=== PATIENT | female | born 1965 | race Caucasian/White ===

== ENCOUNTER 2017-07-14 10:49 | Emergency (ER) | payer OTHER, BC ==
[~2017-07-14] VITALS: Ht 167.6 cm; Wt 90.7 kg
[~2017-07-14 10:49] MED LIST: AMBIEN10 MG PO; BENADRYL25 MG PO; CLARITIN10 M2 PO; CYCLOBENZAPRINE10 MG PO; MOTRIN IB200 MG PO; NAPROXEN500 MG PO; NORCO 5-325 TA1 EACH PO; OXYCODONE HCL5 MG PO; SLEEP AID25 M1 PO
[2017-07-14] MEDS ORDERED: ROBAXIN-750750 MG PO (15:40)
== END 2017-07-14 16:29 | disposition home or self-care (01) ==
LOC: ED 10:49
DX: S16.1XXA Strain of muscle, fascia and tendon at neck level, initial encounter (principal); S29.012A Strain of muscle and tendon of back wall of thorax, initial encounter; F17.200 Nicotine dependence, unspecified, uncomplicated; Z90.710 Acquired absence of both cervix and uterus; V59.9XXA Occupant (driver) (passenger) of pick-up truck or van injured in unspecified traffic accident, initial encounter
CPT/HCPCS: 96372; 99283; J1885

== ENCOUNTER 2018-04-11 12:43 | Emergency (ER) | payer OTHER, BC ==
[~2018-04-11] VITALS: Ht 167.6 cm; Wt 90.7 kg
[~2018-04-11 12:43] MED LIST changes: +ROBAXIN-750750 MG PO
[2018-04-11] MEDS ORDERED: ESTRADIOL1 MG PO (12:55)
[2018-04-11] MEDS ORDERED: KETOROLAC TROME10 MG PO (14:31)
[2018-04-11] MEDS ORDERED: BACLOFEN10 MG PO (14:31)
== END 2018-04-11 14:47 | disposition home or self-care (01) ==
LOC: ED 12:43
DX: S09.90XA Unspecified injury of head, initial encounter (principal); F17.200 Nicotine dependence, unspecified, uncomplicated; Z79.899 Other long term (current) drug therapy; W22.8XXA Striking against or struck by other objects, initial encounter; Y92.89 Other specified places as the place of occurrence of the external cause; Y99.0 Civilian activity done for income or pay
CPT/HCPCS: 70450; 72125; 80048; 85025; 96361; 96374; 96375; 99284; J1885; J2405; J7030

== ENCOUNTER 2021-07-06 11:16 | Emergency (ER) | payer OTHER ==
[~2021-07-06] VITALS: Ht 167.6 cm; Wt 90.7 kg
[~2021-07-06 11:16] MED LIST changes: +BACLOFEN10 MG PO; +ESTRADIOL1 MG PO; +KETOROLAC TROME10 MG PO
--- OUTSIDE RECORDS SUMMARY | 2021-07-06 11:24 | XMS ---
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 E.D. VISIT COUNT (12 MO.) 1 ENRIQUE Benton TOTAL 1 NOTE: Visits indicate total known visits. ED/UCC VISIT TRACKING (12 MO.) 07/06/2021 11:17 ENRIQUE Guillaume OR TYPE: Emergency COMPLAINT: - L FOOT INJURY INPATIENT VISIT TRACKING (12 MO.) No inpatient visits to display in this time frame [email or web address]
[2021-07-06] MEDS ORDERED: ADVIL200 M1 PO (11:35)
[2021-07-06] MEDS ORDERED: HYDROCODON-ACE1 EA10 PO (12:42)
== END 2021-07-06 12:54 | disposition home or self-care (01) ==
LOC: ED 11:16
DX: S92.502A Displaced unspecified fracture of left lesser toe(s), initial encounter for closed fracture (principal); W22.8XXA Striking against or struck by other objects, initial encounter; F17.200 Nicotine dependence, unspecified, uncomplicated
CPT/HCPCS: 73630; 96372; 99283-25; J1885